=== PATIENT | female | born 1980 | race Caucasian/White ===

== ENCOUNTER 2019-09-30 18:18 | Emergency (ER) | payer SELFPAY ==
[~2019-09-30] VITALS: Ht 157.5 cm; Wt 89.1 kg
[~2019-09-30 18:18] MED LIST: INSLAN SQ; METF-446 PO; PIOG30TA10 PO
[2019-09-30 18:19] VITALS: BP 132/94
[2019-09-30] MEDS ORDERED: ALPR0.5T8 PO (18:26)
== END 2019-09-30 20:00 | disposition left against medical advice (07) ==
LOC: EMS 18:19
DX: E11.65 Type 2 diabetes mellitus with hyperglycemia (principal); Z53.21 Procedure and treatment not carried out due to patient leaving prior to being seen by health care provider

== ENCOUNTER 2025-01-02 11:55 | Emergency (ER) | payer OTHER ==
[~2025-01-02] VITALS: Ht 160 cm; Wt 77.3 kg
[~2025-01-02 11:55] MED LIST changes: +ALPR-707 PO; -PIOG30TA10 PO
[2025-01-02 12:09] VITALS: BP 100/64; PULSE 72; RESP 18; TEMP 98.6; O2SAT 99
[2025-01-02] MEDS ORDERED: LIDO700A15 TP (12:26)
[2025-01-02] MEDS ORDERED: HYDR-4062 PO (12:26)
[2025-01-02] MEDS ORDERED: CYCL-448 PO (12:26)
[2025-01-02] MEDS: HYDROCODONE/ACETAMINOPHEN 5-325 MG TABLET PO ONE (12:34)
[2025-01-02] MEDS ORDERED: GABA-1181 PO (12:34)
[2025-01-02] MEDS ORDERED: TIRZ2.5P3 SQ (12:34)
[2025-01-02] MEDS ORDERED: INSU100I15 SQ (12:34)
[2025-01-02] MEDS ORDERED: ATOR40TA71 PO (12:34)
[2025-01-02] MEDS ORDERED: PARO37.516 PO (12:34)
[2025-01-02] MEDS ORDERED: SUMA100T21 PO (12:34)
[2025-01-02] MEDS ORDERED: INSU100I26 SQ (12:34)
[2025-01-02] MEDS: KETOROLAC TROMETHAMINE 60 MG/2 ML VIAL IM ONE (12:35)
[2025-01-02 16:21] LABS: GLUCOMETER DEV NAME(LOC) ER.7; GLUCOSE,POINT OF CARE 130 MG/DL (70-110)
== END 2025-01-02 13:09 | disposition home or self-care (01) ==
LOC: EMS 11:55
DX: S39.012A Strain of muscle, fascia and tendon of lower back, initial encounter (principal); G89.29 Other chronic pain; F41.9 Anxiety disorder, unspecified; E11.9 Type 2 diabetes mellitus without complications; F17.210 Nicotine dependence, cigarettes, uncomplicated; Z79.84 Long term (current) use of oral hypoglycemic drugs; Z79.899 Other long term (current) drug therapy; Z90.49 Acquired absence of other specified parts of digestive tract; Z88.5 Allergy status to narcotic agent; Z98.51 Tubal ligation status; Z98.890 Other specified postprocedural states; X58.XXXA Exposure to other specified factors, initial encounter; Y93.89 Activity, other specified; Y92.89 Other specified places as the place of occurrence of the external cause; Y99.8 Other external cause status
CPT/HCPCS: 99283; 82962; 96372; J1885

== ENCOUNTER 2025-01-13 09:06 | Emergency (ER) | payer OTHER ==
[~2025-01-13] VITALS: Ht 160 cm; Wt 81.8 kg
[~2025-01-13 09:06] MED LIST changes: -ALPR-707 PO; +ATOR40TA71 PO; +CYCL-448 PO; +GABA-1181 PO; +HYDR-4062 PO; -INSLAN SQ; +INSU100I15 SQ; +INSU100I26 SQ; +LIDO700A15 TP; +PARO37.516 PO; +SUMA100T21 PO; +TIRZ2.5P3 SQ
[2025-01-13 09:09] VITALS: BP 126/74; PULSE 96; RESP 18; TEMP 98; O2SAT 97
[2025-01-13] MEDS ORDERED: ARIP2TAB27 PO (09:14)
[2025-01-13] MEDS ORDERED: NAPR-1196 PO (09:14)
== END 2025-01-13 10:54 | disposition home or self-care (01) ==
LOC: EMS 09:13
DX: S46.912A Strain of unspecified muscle, fascia and tendon at shoulder and upper arm level, left arm, initial encounter (principal); E11.65 Type 2 diabetes mellitus with hyperglycemia; F41.9 Anxiety disorder, unspecified; F17.210 Nicotine dependence, cigarettes, uncomplicated; Z79.4 Long term (current) use of insulin; Z79.899 Other long term (current) drug therapy; Z88.5 Allergy status to narcotic agent; Z90.49 Acquired absence of other specified parts of digestive tract; Z98.51 Tubal ligation status; X58.XXXA Exposure to other specified factors, initial encounter; Y93.89 Activity, other specified; Y92.89 Other specified places as the place of occurrence of the external cause; Y99.8 Other external cause status
CPT/HCPCS: 82962; 99283

== ENCOUNTER 2025-01-29 20:11 | Emergency (ER) | payer OTHER ==
[~2025-01-29] VITALS: Ht 157.5 cm; Wt 77.7 kg
[~2025-01-29 20:11] MED LIST changes: +ARIP2TAB27 PO; -LIDO700A15 TP; +NAPR-1196 PO; -TIRZ2.5P3 SQ
[2025-01-29 21:00] VITALS: BP 113/74; PULSE 106; RESP 16; TEMP 98.1; O2SAT 98
[2025-01-29] MEDS: DIAZEPAM 5 MG TABLET PO ONE (22:29)
[2025-01-29] MEDS: LIDOCAINE 5% TRANSDERMAL PATCH TD ONE (22:29)
[2025-01-29] MEDS: KETOROLAC TROMETHAMINE 60 MG/2 ML VIAL IM ONE (22:29)
[2025-01-29] MEDS ORDERED: DIAZ2 PO (22:40)
== END 2025-01-29 22:59 | disposition home or self-care (01) ==
LOC: EMS 20:11
DX: S46.911A Strain of unspecified muscle, fascia and tendon at shoulder and upper arm level, right arm, initial encounter (principal); M75.102 Unspecified rotator cuff tear or rupture of left shoulder, not specified as traumatic; F41.9 Anxiety disorder, unspecified; E11.9 Type 2 diabetes mellitus without complications; F17.210 Nicotine dependence, cigarettes, uncomplicated; Z71.82 Exercise counseling; Z79.4 Long term (current) use of insulin; Z79.899 Other long term (current) drug therapy; Z88.5 Allergy status to narcotic agent; Z90.49 Acquired absence of other specified parts of digestive tract; Z98.51 Tubal ligation status; X50.0XXA Overexertion from strenuous movement or load, initial encounter; Y93.89 Activity, other specified; Y92.89 Other specified places as the place of occurrence of the external cause; Y99.8 Other external cause status
CPT/HCPCS: 82962; 99284

== ENCOUNTER 2025-06-04 00:26 | Emergency (ER) | payer OTHER ==
[~2025-06-04] VITALS: Ht 165.1 cm; Wt 82.3 kg
[~2025-06-04 00:26] MED LIST changes: +DIAZ2 PO
[2025-06-04 01:11] VITALS: BP 84/67; PULSE 74; RESP 18; TEMP 98.1; O2SAT 98
== END 2025-06-04 02:04 | disposition left against medical advice (07) ==
LOC: EMS 00:28
DX: R10.9 Unspecified abdominal pain (principal); Z53.21 Procedure and treatment not carried out due to patient leaving prior to being seen by health care provider
CPT/HCPCS: 82962